=== PATIENT | female | born 1995 | race Caucasian/White ===

== ENCOUNTER 2020-11-07 05:50 | Observation (INO) ==
--- NOTE | 2020-10-31 08:54 | Anesthesiology Consultation ---
Date of Service October 31, 2020 Assessment & Plan (1) Encounter for pre-operative examination: Chart Review Chart Review: Acceptable Risk for Surgery (pending preop Covid testing ) and Patient NOT seen in Pre Admission Testing - Check test AM DOS Pt female to male transgender person Goes by "[place]" Per nursing assessment 10/31/20, pt traveling to [place] with three other people (partner, roommate and friend that isolates) from 10/31/20- 11/02/20. Plan to stay in [employer]. If going in public- will stay outdoors, avoid large crowds and wear a mask at all times. Pt did receive 2nd Covid vaccine 10/27/20. No known Covid positive contacts or Covid related symptoms. No known Covid infection in the past 90 days. Pt is getting preop Covid testing 11/05/20= will await results. Did discuss with Dr. Marquez- pending that Covid testing on 11/05/20 is negative, will also repeat Persaud test DOS (ordered for DOS). Will leave to anesthesi ologist discretion AM of surgery if additional surgery time and/or additional PPE needed. History Surgery Operation Date: 11/07/20 07:30 Proposed Procedures p BIlateral Non Cancerous Mastectomy with Free Nipple Graft - Tessie Fritz MD Height/Weight Height: 5 ft 6 in Weight: 62.596 kg Allergies Allergy/AdvReac Type Severity Reaction Status Date / Time No Known Allergies Allergy Unverified 10/31/20 08:03 Medications Home Medications Medication Instructions Recorded Confirmed Last Taken citalopram [Celexa] 20 mg PO QAM 02/13/20 10/31/20 02/12/20 oxycodone-acetaminophen 5 mg-325 1 tab PO Q4H PRN #18 tab 10/25/20 10/31/20 Unknown mg tablet buspirone 15 mg PO BID 10/31/20 10/31/20 Unknown cephalexin 500 mg PO TID 10/31/20 10/31/20 Unknown hydroxyzine HCl 25 mg PO DAILY PRN 10/31/20 10/31/20 Unknown ondansetron HCl [Zofran] 4 mg PO Q6H PRN 10/31/20 10/31/20 Unknown testosterone cypionate 70 mg IM Q14D 10/31/20 10/31/20 Unknown Past Medical History Medical History Acute anxiety Depression Nougjs-lh-fkyt transgender person Hx of esophageal reflux Nausea and vomiting after administration of anesthetic agent Post traumatic stress disorder hx Past Family History Family History Grandfather (Maternal) FHx: myocardial infarction, Onset Age: 50 Grandmother (Maternal) FHx: lymphoma Grandmother (Paternal) FHx: breast cancer Other No family history of adverse response to anesthesia Past Surgical History Surgical History H/O foot surgery "laser surgery" Right foot History of appendectomy History of esophagogastroduodenoscopy (EGD) Social History Smoking Status: Never smoker Do You Dip or Chew Tobacco: No Hx Alcohol Use: No Hx Substance Use: No substance use type: does not use Lab Results Anesthesia Preop Results Results Anesthesia Widget: WBC 10.63 K/uL (4.8-10.8) 10/25/20 Hgb 15.5 g/dL (12.0-16.0) 10/25/20 Hct 45.0 % (37-47) 10/25/20 Plt 232 K/uL (130-400) 10/25/20 Na 139 mmol/L (136-145) 10/25/20 K 4.3 mmol/L (3.5-5.1) 10/25/20 Cl 106 mmol/L (98-107) 10/25/20 CO2 31 mmol/L (21-32) 10/25/20 BUN 9 mg/dl (7-18) 10/25/20 Creat 0.80 mg/dl (0.6-1.2) 10/25/20 Glucose Level 88 mg/dl (70-99) 10/25/20 PT 11.0 Seconds (9.0-12.0) 10/25/20 PTT 26.7 Seconds (21.0-31.0) 10/25/20 INR 1.1 (0.9-1.1) 10/25/20
[2020-11-07] MEDS ORDERED: LR 15ML/HR IV SCH (06:00)
[2020-11-07] MEDS ORDERED: ceFAZolin 2000MG 2,000 MG/15 ML SYR IV SCH (06:00)
[2020-11-07] MEDS ORDERED: BUPIVACAINE 0.5 % 5 MG/1 ML PF 10ML VIAL ONE (06:36)
[2020-11-07] MEDS ORDERED: SCOPOLAMINE 1 MG TDSY TD ONE (06:53)
[2020-11-07] MEDS ORDERED: PROPOFOL IV EMULSION 10 MG/ML 20 ML VIAL IV ONE ×4 (06:57→12:12)
[2020-11-07] MEDS ORDERED: LIDOCAINE 2% 2 ML VIAL/AMP(20MG/ML) INFIL ONE (06:57)
[2020-11-07] MEDS ORDERED: ROCURONIUM BROMIDE 10 MG/ML 5 ML VIAL IV ONE (06:57)
[2020-11-07] MEDS ORDERED: fentaNYL citrate 100 MCG/2 ML VIAL ONE ×2 (06:57→07:54)
[2020-11-07] MEDS ORDERED: MIDAZOLAM HCL 1 MG/ML 2ML VIAL ONE (06:57)
[2020-11-07] MEDS ORDERED: LIDOCAINE/EPINEPHRINE 1% 20 ML VIAL ONE (07:02)
[2020-11-07] MEDS ORDERED: ONDANSETRON INJ 2 MG/ML 2 ML VIAL ONE (07:02)
[2020-11-07] MEDS ORDERED: BUPIVACAINE 0.25% 30 ML VIAL ONE (07:02)
--- NOTE | 2020-11-07 07:07 | History & Physical Bridge Note ---
Date of Service November 07, 2020 History & Physical Bridge Note I have examined the patient, reviewed the History & Physical and in the interval since the performance of the History & Physical I have noted the following changes of clinical significance: no changes noted
[2020-11-07] MEDS ORDERED: NEOSTIGMINE METHYLSULFATE 1 MG/ML 10ML VIAL ONE (07:58)
[2020-11-07] MEDS ORDERED: GLYCOPYRROLATE 0.2 MG/ML VIAL ONE (07:58)
[2020-11-07] MEDS ORDERED: DEXAMETHASONE SOD INJ 4 MG/ML VIAL ONE (07:58)
[2020-11-07] MEDS ORDERED: fentaNYL citrate 100 MCG/2 ML VIAL IV PRN (08:13)
[2020-11-07] MEDS ORDERED: HYDROmorphone INJ 2 MG/ML SYR/VIAL IV PRN (08:13)
[2020-11-07] MEDS ORDERED: ePHEDrine sulfate 50 MG/ML AMP IV PRN (08:13)
[2020-11-07] MEDS ORDERED: ONDANSETRON INJ 2 MG/ML 2 ML VIAL IV PRN ×2 (08:13→11:49)
[2020-11-07] MEDS ORDERED: PROMETHAZINE HCL 12.5 MG in SODIUM CHLORIDE 0.9% 50 ML IV PRN ×2 (08:13→11:49)
[2020-11-07] MEDS ORDERED: ATROPINE SULFATE 0.1 MG/ML 10ML SYR IV PRN (08:13)
[2020-11-07] MEDS ORDERED: HYDROmorphone INJ 2 MG/ML SYR/VIAL ONE (08:56)
--- NOTE | 2020-11-07 11:33 | Post Operative Brief Note ---
PG Immediate Post Op with CF Date of Surgery November 07, 2020 Pre & Post Diagnosis Operation Date: 11/07/20 07:30 Pre-Op Diagnosis: Female to Male Transgender Person Post-Op Diagnosis: Female to Male Transgender Person I identified the patient and participated in the time-out.: Yes Procedure Operation Date: 11/07/20 07:30 Actual Procedures p Bilateral Non Cancerous Mastectomy with Free Nipple Graft(Bilateral) - Tessie Fritz MD Surgeon Tessie Fritz MD Track Laminating Machine Tender Geovanna Fuentes PA-C Estimated Blood Loss 10 Findings Consistent with Post-Op Diagnosis Specimens Specimen Description: Fresh Specimen: A.) Left Breast out of body at: 0832 sent to lab at: 0850 Fresh Specimen: B.) Right Breast out of body at : 0917 sent to lab at : 0921 Drains Juan Luis-Cisse Drain (15 vietnamese round x2)
--- NOTE | 2020-11-07 11:42 | Operative Report ---
PG Post Operative Report Pre & Post Diagnosis Operation Date: 11/07/20 07:30 Pre-Op Diagnosis: Female to Male Transgender Person Post-Op Diagnosis: Female to Male Transgender Person I identified the patient and participated in the time-out.: Yes Procedure Operation Date: 11/07/20 07:30 Actual Procedures p Bilateral Non Cancerous Mastectomy with Free Nipple Graft(Bilateral) - Tessie Fritz MD Surgeon Tessie Fritz MD Dealer Accounts Investigator Geovanna Fuentes PA-C Estimated Blood Loss 10 Findings Consistent with Post-Op Diagnosis Specimens bilateral breast tissue Drains [id number] Anesthesia Type General Complications none Disposition Disposition: Recovery Room Indications desiring gender affirmation surgery Description of Procedure The risk, benefits, alternatives the procedure explained the patient agreed and signed consent. They were identified and marked in the preoperative holding area. Patient was brought to the operating room, placed supine, placed under general anesthesia without incident. Surgical site was prepped and draped sterilely. A timeout procedure was performed. I began with the left breast. Markings were reassessed. 1% lidocaine with epinephrine was used to anesthetize the breast and nipple areolar complex. Based on the patient's somewhat wide nipple diameter, I used a 28 mm cookie wax cutter order to allow for some areola to be visible. The planned incision was marked using a cookie cutter, and incised using 15 blade scalpel. Nipple was harvested as a full-thickness skin graft, placed in a saline soaked sponge on the back table. Hemostasis was achieved with electrocautery. Given the fairly limited skin excess, I did alice excision of breast tissue in elliptical fashion surrounding only the nipple areolar complex, without additional superior or inferior skin. Inferior incision was made using 15 blade scalpel, incision was deepened through dermis and subcutaneous fat using electrocautery. Given the density of the breast tissue, I did switch to the PEAK PlasmaBlade, and this was used to raise the flap inferiorly off of the breast tissue. This dissection was carried down to the inferior aspect of the breast parenchyma, and then underneath the inframammary fold in order to break the fold apart. I then dissected the breast tissue off of the pectoralis major fascia using the PlasmaBlade, superiorly until I had dissected up to the superior margin of the breast tissue. Once it was certain I would be able to achieve wound closure, the superior mastectomy incision was made using 15 blade scalpel again deepened using the PlasmaBlade down to breast parenchyma. In order to prevent a contour irregularity, I did leave some breast tissue behind as I dissected the breast tissue from the superior flap. I left a flap thickness of about 1 cm, which was equal in thickness to the inferior flap and upper abdominal skin and subcutaneous fat. Care was taken to dissect out the lateral breast parenchyma as well along the axillary tail. Breast tissue was passed off. Hemostasis was achieved with electrocautery. Wound was irrigated using normal saline. Quarter percent Marcaine plain was used to anesthetize the pectoralis fascia and mastectomy flaps. 15 Slovenian Jose M drain was placed into the wound bed prior to closure. Wounds were approximated using 2-0 Vicryl superficial fascial sutures and 2-0 Vicryl deep dermal sutures, 3-0 PDS interrupted superficial dermal sutures, small medial and lateral dogears were trimmed using a curved iris scissor. Drain was sutured in place using 3-0 nylon. Similar procedure was undertaken on the right breast. Patient was placed in seated position, and I was satisfied with the appearance. Nipple areolar complex recipient sites were measured and marked while in seated position. Grafts were defatted using a curved iris scissor. When I was satisfied with the location, the 28 mm cookie cutter was used to circumscribe the recipient site, de-epithelialized using a 15 blade scalpel. The grafts were inset and sutured into place using 4-0 chromic running suture. 3-0 Monocryl running subcuticular suture was used to close all incision s 4-0 silk tie-over bolster sutures were then placed, followed by Xeroform, cotton ball dressing. Bolsters were tied into place. Dermabond Prineo was placed over the incisions. Dry dressings and an abdominal binder were placed. Procedure was tolerated well. EBL 10 cc. Tegan Wise PA-C was present and scrubbed out the entire procedure, assisted in retraction and simultaneous wound closure. I attest to the content of the Intraoperative Record and any orders documented therein. Any exceptions are noted below.
[2020-11-07] MEDS ORDERED: ACETAMINOPHEN 500 MG TAB PO PRN (11:44)
[2020-11-07] MEDS ORDERED: MoRPHine SULFATE 4 MG/ML 1 ML CARP\\VIAL IV PRN (11:44)
[2020-11-07] MEDS ORDERED: MoRPHine SULFATE 2 MG/ML CARP IV PRN (11:44)
[2020-11-07] MEDS ORDERED: oxyCODONE/ACETAMINOPHEN 5mg/325mg TAB PO PRN ×2 (11:44)
[2020-11-07] MEDS ORDERED: diphenhydrAMINE Capsule 25 MG CAP PO PRN (11:44)
[2020-11-07] MEDS ORDERED: LORazepam 0.5 MG TAB PO PRN (11:44)
[2020-11-07] MEDS ORDERED: diphenhydrAMINE 50 MG/ML VIAL IV PRN (11:44)
[2020-11-07] MEDS ORDERED: MEPERIDINE HCL 25 MG/ML CARP/VIAL ONE (12:18)
[2020-11-07] MEDS ORDERED: MEPERIDINE HCL 25 MG/ML CARP/VIAL IV STA (12:22)
--- NOTE | 2020-11-07 13:09 | Surgery Progress Note ---
Date of Service November 07, 2020 Assessment & Plan (1) Ayunca-sy-bcuy transgender person: Doc is doing well following Bilateral Non Cancerous Mastectomy with Free Nipple Graft. Bilateral JAYDE drains in place with minimal output. Pain is controlled at this time. Post-op IV abx ordered. Plan is for discharge to home tomorrow morning. Subjective [place] is status post Bilateral Non Cancerous Mastectomy with Free Nipple Graft. They are still fairly groggy from anesthesia. They report that their pain is well-controlled. They deny nausea. Patient seen in PACU. Physical Exam Physical Exam: On physical exam- Binder in place- opened to reveal surgical dressings are clean and dry. Bilateral nipple bolsters are in place. No signs of active bleeding. Bilateral JAYDE drains in place with minimal drainage (<5/drain). Results & Data ([facility]) Vital Signs (Past 12 Hours) Vital Signs Temp Pulse Pulse Resp BP BP Pulse Ox 11/07/20 13:05 37.2 C 115 H 13 131/73 97 11/07/20 12:55 37.2 C 111 H 12 133/81 98 11/07/20 12:45 115 H 13 140/87 99 11/07/20 12:35 123 H 10 L 150/92 H 98 11/07/20 12:25 130 H 13 160/77 H 100 11/07/20 12:15 36.2 C L 115 H 16 135/87 96 11/07/20 06:19 37.3 C 85 22 129/79 99 PG Care Time/CCT Total # of Minutes Spent Total Time Spent with Patient: Total time spent is greater than 50% in coordination of care (as documented) at patient's floor/unit and/or counseling patient: Coding Level of Care Code None Diagnoses Zgeprq-ia-nqkc transgender person Z78.9
--- NOTE | 2020-11-07 13:38 | Anesthesiology Progress Note ---
Date of Service November 07, 2020 Anesthesia Post Procedure Vital Signs Vital Signs: Temp Pulse Pulse Resp BP BP Pulse Ox 11/07/20 13:25 37.2 C 110 H 16 129/70 97 11/07/20 13:15 37.2 C 113 H 10 L 149/70 H 97 11/07/20 13:05 37.2 C 115 H 13 131/73 97 11/07/20 12:55 37.2 C 111 H 12 133/81 98 11/07/20 12:45 115 H 13 140/87 99 11/07/20 12:35 123 H 10 L 150/92 H 98 11/07/20 12:25 130 H 13 160/77 H 100 11/07/20 12:15 36.2 C L 115 H 16 135/87 96 11/07/20 06:19 37.3 C 85 22 129/79 99 Transfer of Care Handoff Completed per policy Notes Mental Status: alert / awake / arousable and participated in evaluation Patient Amnestic to Procedure: Yes Nausea / Vomiting: adequately controlled Pain: adequately controlled Airway Patency, RR, SpO2: stable & adequate BP & HR: stable & adequate Hydration State: stable & adequate Anesthetic Complications: no major complications apparent and Pt Satisfied with anesthetic care
[2020-11-07] MEDS ORDERED: hydrOXYzine HCl 25 MG TAB PO PRN (14:08)
[2020-11-07] MEDS: D5W AND 1/2NSS + 20MEQ KCL 20 MEQ/1,000 ML BAG IV SCH (15:13)
[2020-11-07] MEDS: ceFAZolin 2000MG 2,000 MG/15 ML SYR IV SCH ×2 (16:13→23:52)
[2020-11-07] MEDS: busPIRone 15 MG TAB PO SCH (20:04)
[2020-11-08] MEDS: D5W AND 1/2NSS + 20MEQ KCL 20 MEQ/1,000 ML BAG IV SCH (04:44)
[2020-11-08] MEDS: busPIRone 15 MG TAB PO SCH (08:44)
[2020-11-08] MEDS ORDERED: MULTIVITAMIN TAB PO SCH (09:00)
[2020-11-08] MEDS ORDERED: CITALOPRAM 20 MG TAB PO SCH (09:00)
--- NOTE | 2020-11-08 09:09 | Surgery Progress Note ---
Date of Service November 08, 2020 Assessment & Plan (1) Qnhedy-iy-nhsh transgender person: POD #1 Doc is doing well following Bilateral Non Cancerous Mastectomy with Free Nipple Graft. Ok for discharge to home today. Bilateral JAYDE drains in place with minimal output. We discussed that they will be going home with drains in place. We reviewed importance of recording drain output. They will continue to keep surgical binder in place. Pain is well-controlled since surgery. They are aware that they will be starting post-op antibiotic today. Patient will follow-up in our office tomorrow. They were encouraged to call our office with any questions or concerns. Admission and Anticipated Discharge Date Admission Date: November 07, 2020 Subjective Doc is resting in bed. They report that they are doing very well. They deny pain and state that they have minimal to no pain since surgery. They deny nausea. They are tolerating a regular diet. They are ambulating without issue. They are voiding without issue. Physical Exam Physical Exam: On physical exam- Binder in place- opened to reveal surgical dressings are clean and dry. Bilateral nipple bolsters are in place. No signs of active bleeding. Incisions are clean, dry and intact with surgical glue and tape in place. Bilateral JAYDE drains in place with minimal drainage (<5/drain). Results & Data ([facility]) Vital Signs (Past 12 Hours) Vital Signs Temp Pulse Resp BP Pulse Ox 11/08/20 07:32 37.2 C 69 15 107/61 96 11/08/20 02:30 36.5 C 63 18 104/64 96 11/07/20 22:33 37.5 C 107 H 18 108/70 97 PG Care Time/CCT Total # of Minutes Spent Total Time Spent with Patient: Total time spent is greater than 50% in coordination of care (as documented) at patient's floor/unit and/or counseling patient: Coding Level of Care Code None Diagnoses Brfipe-qt-pnhn transgender person Z78.9
--- NOTE | 2020-11-08 15:09 | Discharge Summary ---
Date of Service November 08, 2020 Admission HPI Per Admitting Provider Please see admission H & P. Admission Exam Per Admitting Provider Please see admission H & P. Principal Diagnosis Vtejai-ld-ufso transgender person Discharge Data Allergies Allergy/AdvReac Type Severity Reaction Status Date / Time No Known Allergies Allergy Verified 11/07/20 06:15 Procedures Performed Operation Date: 11/07/20 07:30 Actual Procedures p Bilateral Non Cancerous Mastectomy with Free Nipple Graft(Bilateral) - Tessie Fritz MD Ordered Studies 11/07/20 05:00 US - OR guided needle placemen Routine Hospital Course (1) Vaizll-ei-aggw transgender person: Doc was taken to the OR and underwent Bilateral Non Cancerous Mastectomy with Free Nipple Graft. 2 JAYDE drains were placed intraoperatively. There were no intraoperative complications. They were taken to recovery and transferred to med/surg for observation. On POD #1 they were feeling well. They denied pain and denied nausea. They were tolerating a regular diet and voiding on their own. On exam- Binder in place- opened to reveal surgical dressings are clean and dry. Bilateral nipple bolsters in place. No signs of active bleeding. Incisions are clean, dry and intact with surgical glue and tape in place. Bilateral JAYDE drains in place with minimal drainage (<5/drain). They were discharged to home with instructions to not shower and to leave surgical binder and dressings in place. They will begin their post-op antibiotic at discharge. They have a follow-up visit scheduled at our office tomorrow. They were instructed to call our office with any questions or concerns. Total Time Total Time Spent Total Time Spent (In Minutes): 10 Discharge Plan Discharge Items Patient Disposition: Home - Self-Care Reason For Visit: Female to Male Transgender Person Discharge Diagnosis: Female to Male Transgender Person Activity: As commented below Non-emergency contact: Surgeon Call non-emergency contact if: you have any medication questions, your pain is not controlled, your pain is concerning for you, your temperature is above 101.5, your wound has increased redness and your wound has increased drainage Follow-up/Referrals: [facility] [Primary Care Provider] - Diet: Regular Addtl Attending Provider Instructions: ACTIVITY RECOMMENDATIONS: __Normal activities _X_No bending, lifting or straining __No driving _X_Driving allowed when you are off pain medications _X_Walking permitted __You should have help at home for ___ days DRESSINGS: __No dressings required X__Keep surgical binder and surgical dressings dry/in place until first office visit __Remove dressings ___ and leave dressings off __Apply ice ___ days __Remove dressings and reapply garment __Apply antibiotic ointment (Bacitracin, Neosporin, etc) to wounds 3-4 times/day for 10 days BATHING: X__Keep dressings dry _X_Sponge bathing permitted, but you are not allowed to shower. Please keep surgical dressings dry. __Showering permitted _X_No swimming, hot tubs or soaking in a tub MEDICATIONS: Resume previous medications unless instructed otherwise by your surgeon. X__Do not use aspirin, Motrin, Advil or Ibuprofen as these may promote bleeding. Please use Tylenol. _X_Prescription(s) provided: Prescription for post-op pain medication and post- op antibiotic (Cephalexin) provided at last office visit. Please begin antibiotic today when you are discharged. OTHER INSTRUCTIONS: _X_Record drain output 2-3 times per day SPECIAL CARE INSTRUCTIONS: * It is normal to have a mild fever after surgery. If your temperature is higher than 101.5 degrees F, please call the office at [phone]. * Constipation is a typical side effect of pain medication. An ikkh-qsw-uxobodu stool softener will help relieve this. * Leaking around surgical drains may occur and should not cause concern. Sometimes these drains become clogged. If this happens, remove the bulb and milk the clot out of the tube, then replace the bulb. * Drainage from wounds after liposuction is normal and should be expected. Garments will become soiled. You should protect furniture and bedding. This drainage should mostly subside within 2-3 days. Leave garments in place unless instructed to remove them. * If you have unusual drainage from a wound or are concerned you have an infection or have any questions or concerns, please call the office at [phone]. FOLLOW UP VISIT: If not already scheduled, please call the office, , when you return home after surgery to schedule an appointment to be seen in __1_ day. Pending Studies at Discharge: Yes Studies:: Pathology report. Stand-Alone Forms: My [facility], Opioid Pain Management, Smoking Cessation Medications and DC Order Prescriptions: Continued oxycodone-acetaminophen [Endocet] 5-325 mg tablet 1 tab PO Q4H PRN (Reason: pain) Qty: 18 RF: 0 citalopram [Celexa] 20 mg Tablet 30 mg PO QAM RF: 0 buspirone 15 mg Tablet 15 mg PO BID RF: 0 ondansetron HCl [Zofran] 4 mg tablet 4 mg PO Q6H PRN (Reason: post op nausea) RF: 0 cephalexin 500 mg capsule 500 mg PO TID RF: 0 hydroxyzine HCl 25 mg Tablet 25 mg PO DAILY PRN (Reason: Anxiety) RF: 0 testosterone cypionate 200 mg/mL Oil 70 mg IM Q14D RF: 0 Discharge Orders: Discharge Order (Routine); Ordered 11/08/20 Ordered By: Tegan Nunez/Other Patient Handouts: DVT Post Op Prevention, Discharge Instructions Caring for ... Admission Data Admit Date/Time: 11/07/20 11:44 Attending Provider: Tessie Fritz Admit Provider: Tessie Fritz Primary Care Provider: [place] Other Interventions: Discharge Summary Assessment (RN) Last Done: 11/08/20 11:14 Coding Level of Care Code 36461 OBS Care - Discharge Diagnoses Coanbh-ud-[id number] transgender person Z78.9
== END 2020-11-08 11:54 | disposition home or self-care (01) ==
LOC: ASU 05:50 → 3N 05:50